=== PATIENT | male | born 1985 | race Caucasian/White ===

== ENCOUNTER 2020-09-10 00:13 | Emergency (ER) | payer BC ==
[~2020-09-10] VITALS: Ht 185.4 cm; Wt 111.1 kg
[~2020-09-10 00:13] MED LIST: HYDROCODONE BIT1 T11 PO; IBU-8800 MG PO; MOTRIN800 MG PO; NAPROSYN500 MG PO; NORFLEX100 MG PO; TOBRADEX 0.1%-0.5 ML OPH
== END 2020-09-10 02:24 | disposition home or self-care (01) ==
LOC: ED 00:13
DX: S01.01XA Laceration without foreign body of scalp, initial encounter (principal); W01.0XXA Fall on same level from slipping, tripping and stumbling without subsequent striking against object, initial encounter; Y93.89 Activity, other specified; Y92.89 Other specified places as the place of occurrence of the external cause; Y99.8 Other external cause status

== ENCOUNTER → 2020-10-31 | Outpatient (CLI) | payer BC | END | disposition home or self-care (01) | LOC: COVID19 15:12 | PROVIDERS: ATTEND Internal Medicine | DX: U07.1 COVID-19 (principal) ==

== ENCOUNTER 2022-07-12 22:46 | Emergency (ER) | payer BC ==
[~2022-07-12] VITALS: Ht 187.9 cm; Wt 113.4 kg
[2022-07-13] MEDS ORDERED: MEDROL DOSEPAK4 MG PO (02:29)
== END 2022-07-13 02:40 | disposition home or self-care (01) ==
LOC: ED 22:46
DX: L23.7 Allergic contact dermatitis due to plants, except food (principal)